=== PATIENT | male | born 1990 | race Caucasian/White ===

== ENCOUNTER 2021-11-11 13:13 | Emergency (ER) | payer OTHER ==
[2021-11-11 14:17] VITALS: TEMP 97.8
[2021-11-11] MEDS ORDERED: predniSONE 20 MG TAB PO STA (17:55)
--- NOTE | 2021-11-11 18:20 | ED ---
General Adult HPI - General Chief complaint: Skin/Abscess/Foreign Body Stated complaint: poison tara/oak exposure Time Seen by Provider: 11/11/21 17:26 Source: patient Mode of arrival: ambulatory Limitations: no limitations - History of Present Illness Initial comments: Patient is a 31-year-old male who presents to the emergency department with a chief complaint of rash. Patient states symptoms started 2 days ago. Patient states he was helping his parents build a fence about 5 days ago which involved yardwork and possible poison tara infection. Patient reports history of poison tara. The rash is over his right forearm, left cheek, and bilateral postauricular region. Denies pain but states it is very itchy. He has been taking Benadryl and using calamine cream with no relief. Patient states he was a little short of breath earlier which brought him into the emergency department but has since resolved. He denies throat swelling or irritation. Denies history of anaphylaxis. - Related Data Previous Rx's Medication Instructions Recorded Ibuprofen [Motrin] 800 mg PO Q8HR #30 tab 11/18/13 methylPREDNISolone Dose Pack 4 mg PO DIRECTED #21 package 11/18/13 [Medrol Dose Pack] predniSONE 10 mg PO DAILY #8 tab 11/11/21 predniSONE 30 mg PO DAILY #12 tab 11/11/21 predniSONE 50 mg PO DAILY #4 tablet 11/11/21 predniSONE [Deltasone] 20 mg PO DAILY #8 tab 11/11/21 predniSONE [Deltasone] 20 mg PO DAILY #9 tab 11/11/21 Allergies Allergy/AdvReac Type Severity Reaction Status Date / Time No Known Allergies Allergy Verified 11/11/21 14:16 Review of Systems ROS Statement: Those systems with pertinent positive or pertinent negative responses have been documented in the HPI. ROS Other: All systems not noted in ROS Statement are negative. Past Medical History Past Medical History: No Reported History History of Any Multi-Drug Resistant Organisms: None Reported Past Surgical History: Adenoidectomy, Tonsillectomy Past Psychological History: No Psychological Hx Reported Smoking Status: Never smoker Past Alcohol Use History: Occasional Past Drug Use History: None Reported General Exam Limitations: no limitations General appearance: alert, in no apparent distress Head exam: Present: atraumatic, normocephalic, normal inspection Eye exam: Present: normal appearance, PERRL, EOMI. Absent: scleral icterus, conjunctival injection, periorbital swelling ENT exam: Present: normal oropharynx Neck exam: Present: normal inspection (Rash). Absent: tenderness, meningismus, lymphadenopathy Respiratory exam: Present: normal lung sounds bilaterally. Absent: respiratory distress, wheezes, rales, rhonchi, stridor Cardiovascular Exam: Present: regular rate, normal rhythm, normal heart sounds. Absent: systolic murmur, diastolic murmur, rubs, gallop, clicks GI/Abdominal exam: Present: soft, normal bowel sounds. Absent: distended, tenderness, guarding, rebound, rigid Neurological exam: Present: alert, oriented X3, CN II-XII intact Psychiatric exam: Present: normal affect, normal mood Skin exam: Present: warm, dry, intact, normal color, rash (Vesicles on erythematous base over the) Course Vital Signs 11/11/21 11/11/21 14:11 18:35 Temperature 97.8 F Pulse Rate 64 62 Respiratory 18 16 Rate Blood Pressure 173/106 182/118 O2 Sat by Pulse 98 97 Oximetry Medical Decision Making - Medical Decision Making This is a 31-year-old male presents with poison tara concern. Thorough history and examination were performed. Patient is well-appearing and in no apparent distress. No dyspnea, throat swelling, or throat irritation. There is a vesicular rash on erythematous base over the right forearm, left cheek, and bilateral postauricular region. It does resemble poison tara. Because rash is extensive and patient experienced shortness of breath today I will treat this as systemic poison tara. He will be discharged with a prednisone taper. His first dose was given the emergency Department. Patient also instructed to follow-up with his primary care provider regarding his blood pressure. Patient states he used to be on lisinopril but stopped taking it. Return parameters discussed. Patient verbalizes understanding and is agreeable to this plan. Dr. Hirsch is my attending. Disposition Clinical Impression: Poison tara dermatitis, Hypertension Disposition: HOME SELF-CARE Instructions (If sedation given, give patient instructions): Poison Tara (ED), Cold Compress or Soak (ED) Additional Instructions: Please take medication as directed. You will take 60 mg daily for the next 3 days, then each 10 mg increment for the next 4 days. So after the 60 mg for 3 days you will be taking 50 mg for 4 days and so on until rash is cleared. Follow-up with primary care provider in one to 2 days regarding rash and high blood pressure. You may need to be put back on lisinopril. Return to the emergency department if you experience new, concerning, or worsening symptoms. Prescriptions: predniSONE [Deltasone] 20 mg PO DAILY #9 tab predniSONE [Deltasone] 20 mg PO DAILY #8 tab predniSONE 10 mg PO DAILY #8 tab predniSONE 30 mg PO DAILY #12 tab predniSONE 50 mg PO DAILY #4 tablet Is patient prescribed a controlled substance at d/c from ED?: No Referrals: Navarro Levi MD [Primary Care Provider] - 1-2 days Time of Disposition: 18:22
[2021-11-11 18:36] VITALS: BP 182/118; PULSE 62; RESP 16
== END 2021-11-11 18:38 | disposition home or self-care (01) ==
LOC: EC 13:13
DX: L23.7 Allergic contact dermatitis due to plants, except food (principal); I10 Essential (primary) hypertension
CPT/HCPCS: 99282; J7512

== ENCOUNTER 2022-06-03 15:29 | Emergency (ER) | payer OTHER ==
[2022-06-03 16:02] VITALS: BP 187/124; PULSE 65; RESP 16; TEMP 98
--- NOTE | 2022-06-03 16:50 | XR ---
EXAMINATION TYPE: XR chest 2V DATE OF EXAM: 06/03/2022 4:47 PM COMPARISON: Chest radiographs from 11/18/2013 TECHNIQUE: XR chest 2V Frontal and lateral views of the chest. CLINICAL INDICATION:Male, 32 years old with history of Chest Pain; FINDINGS: Lungs/Pleura: There is no evidence of pleural effusion, focal consolidation, or pneumothorax. Pulmonary vascularity: Unremarkable. Heart/mediastinum: Cardiomediastinal silhouette is unremarkable. Musculoskeletal: No acute osseous pathology. IMPRESSION: No acute cardiopulmonary disease/process.
[2022-06-03 17:36] LABS: Basophils # (A) 0.1 k/uL (0-0.2); Basophils % (A) 1 %; Eosinophils # (A) 0.2 k/uL (0-0.7); Eosinophils % (A) 2 %; HGB 16.6 gm/dL (13.0-17.5); Lymphocytes # (A) 1.3 k/uL (1.0-4.8); Lymphocytes % (A) 10 %; MCH 29.8 pg (25.0-35.0); MCV 82.9 fL (80.0-100.0); Mean Platelet Volume 8.5; Monocytes # (A) 0.3 k/uL (0-1.0); Monocytes % (A) 2 %; Neutrophils # (A) 10.8 k/uL (1.3-7.7); Neutrophils % (A) 84 %; Platelet Count 251 k/uL (150-450); RBC 5.55 m/uL (4.30-5.90); RDW 13.2 % (11.5-15.5); WBC 12.8 k/uL (3.8-10.6)
[2022-06-03 17:45] LABS: ALT 43 U/L (4-49); AST 40 U/L (17-59); African American GFR (CKD) >90 (>60 ml/min/1.73 sqM); Albumin 4.7 g/dL (3.5-5.0); Alkaline Phosphatase 92 U/L (38-126); Anion Gap 11 mmol/L; Blood Urea Nitrogen 16 mg/dL (9-20); Calcium 9.1 mg/dL (8.4-10.2); Carbon Dioxide 19 mmol/L (22-30); Chloride 110 mmol/L (98-107); Glucose 119 mg/dL (74-99); Magnesium 2.3 mg/dL (1.6-2.3); Non-African American GFR(CKD) >90 (>60 ml/min/1.73 sqM); Potassium 4.1 mmol/L (3.5-5.1); Sodium 140 mmol/L (137-145); Total Bilirubin 0.5 mg/dL (0.2-1.3); Total Protein 7.6 g/dL (6.3-8.2)
[2022-06-03 17:48] LABS: Partial Thromboplastin Time 22.3 sec (22.0-30.0); Prothrombin Time 10.3 sec (9.0-12.0)
== END 2022-06-03 20:34 | disposition left against medical advice (07) ==
LOC: EC 15:29
DX: Z53.21 Procedure and treatment not carried out due to patient leaving prior to being seen by health care provider (principal)
CPT/HCPCS: 36415; 71046; 80053; 83735; 84484; 85025; 85610; 85730; 87502; 87635; 93005; 99499

== ENCOUNTER 2023-05-02 11:39 | Emergency (ER) | payer OTHER ==
[2023-05-02 12:06] VITALS: TEMP 98.4
[2023-05-02] MEDS ORDERED: methylPREDNISolone SOD SUCCI 125 MG/2 ML VIAL IM ONE (12:17)
[2023-05-02] MEDS ORDERED: TRIAMCINOLONE ACET 0.5% CREAM 15 GM TUBE TOPICAL ONE (12:17)
--- NOTE | 2023-05-02 12:24 | ED ---
Skin/Abscess/FB HPI - General Chief complaint: Skin/Abscess/Foreign Body Stated complaint: Rash Time Seen by Provider: 05/02/23 11:50 Source: patient, RN notes reviewed Mode of arrival: ambulatory Limitations: no limitations - History of Present Illness Initial comments: This is a 32-year-old male who presents to the emergency department for concerns of poison tara. Reports a rash on his abdomen and bilateral forearms. He first noticed this 2 days ago. Describes this as being very itchy. Calamine lotion has not been very effective. He's been helping his parents move and he has been outside, and believes that this is how he may have acquired this. He did have poison tara last year as well and states that it looks and feels similar. States that last time steroids worked well for him. MD complaint: rash - Related Data Previous Rx's Medication Instructions Recorded Ibuprofen [Motrin] 800 mg PO Q8HR #30 tab 11/18/13 methylPREDNISolone Dose Pack 4 mg PO DIRECTED #21 package 11/18/13 [Medrol Dose Pack] predniSONE 10 mg PO DAILY #8 tab 11/11/21 predniSONE 30 mg PO DAILY #12 tab 11/11/21 predniSONE 50 mg PO DAILY #4 tablet 11/11/21 predniSONE [Deltasone] 20 mg PO DAILY #8 tab 11/11/21 predniSONE [Deltasone] 20 mg PO DAILY #9 tab 11/11/21 predniSONE 10 mg PO DIRECTED 20 Days #60 05/02/23 tab Allergies Allergy/AdvReac Type Severity Reaction Status Date / Time No Known Allergies Allergy Verified 05/02/23 11:44 Review of Systems ROS Statement: Those systems with pertinent positive or pertinent negative responses have been documented in the HPI. ROS Other: All systems not noted in ROS Statement are negative. Past Medical History Past Medical History: No Reported History History of Any Multi-Drug Resistant Organisms: None Reported Past Surgical History: Adenoidectomy, Tonsillectomy Past Psychological History: No Psychological Hx Reported Smoking Status: Never smoker Past Alcohol Use History: Occasional Past Drug Use History: None Reported General Exam Limitations: no limitations General appearance: alert, in no apparent distress Head exam: Present: atraumatic, normocephalic, normal inspection Respiratory exam: Present: normal lung sounds bilaterally. Absent: respiratory distress, wheezes, rales, rhonchi, stridor Cardiovascular Exam: Present: regular rate, normal rhythm, normal heart sounds. Absent: systolic murmur, diastolic murmur, rubs, gallop, clicks Neurological exam: Present: alert, oriented X3, CN II-XII intact Psychiatric exam: Present: normal affect, normal mood Skin exam: Present: other (Raised erythematous and scaling lesions to the left lower abdomen and bilateral forearms.) Course Vital Signs 05/02/23 05/02/23 11:42 13:07 Temperature 98.4 F Pulse Rate 63 64 Respiratory 18 16 Rate Blood Pressure 198/111 158/106 O2 Sat by Pulse 98 99 Oximetry Medical Decision Making - Medical Decision Making This is a 32-year-old male who presents to the emergency department for a rash. Was pt. sent in by a medical professional or institution? @ -No Did you speak to anyone other than the patient for history? @ -No Did you review nursing and triage notes? @ -Yes, and I agree, it is accurate with regards to the patient's symptoms. Were old charts reviewed? @ -No Differential Diagnosis? @ -Differential Rash: Roseola, measles, Lyme disease, erythema multiforme, cellulitis, toxic shock syndrome, Bartolo Adonay syndrome, Kawasaki disease, darius mountain spotted fever, contact dermatitis, allergic dermatitis, measles, mumps, rubella, varicella, meningococcal disease, drug reaction, coxsackievirus, This is not meant to be an all-inclusive list. EKG interpreted by me (3pts min.)? @ -Not obtained X-rays interpreted by me (1pt min.)? @ -Not obtained CT interpreted by me (1pt min.)? @ -Not obtained U/S interpreted by me (1pt. min.)? @ -Not obtained What testing was considered but not performed? (CT, X-rays, U/S, labs)? Why? @ -None What meds were considered but not given? Why? @ -None Did you discuss the management of the patient with other professionals? @ -No Did you reconcile home meds? @ -No Was smoking cessation discussed for >3mins.? @ -No Was critical care preformed (if so, how long)? @ -No Were there social determinants of health that impacted care today? How? (Homelessness, low income, unemployed, alcoholism, drug addiction, transportation, low edu. Level, literacy, decrease access to med. care, nursing home, rehab)? @ -No Was there de-escalation of care discussed even if they declined? (Discuss DNR or withdrawal of care, Hospice)? @ -No What co-morbidities impacted this encounter? (DM, HTN, Smoking, COPD, CAD, Cancer, CVA, Hep., AIDS, mental health diagnosis, sleep apnea, morbid obesity)? @ -None Was patient admitted / discharged? @ -Discharged. Physical examination consistent with a poison tara dermatitis. Rx for a steroid taper prescribed for further management of symptoms. He was also given a bottle of triamcinolone cream. Advised that he can use this as a spot treatment to help with itching, however he is instructed to avoid using this on the face if it were to spread there. He'll otherwise continue with supportive care and he was discharged home in stable condition. Undiagnosed new problem with uncertain prognosis? @ -None Drug Therapy requiring intensive monitoring for toxicity (Heparin, Nitro, Insulin, Cardizem)? @ -None Were any procedures done? @ -None Diagnosis/symptom? @ -Poison tara dermatitis Acute, or Chronic, or Acute on Chronic? @ -Acute Uncomplicated (without systemic symptoms) or Complicated (systemic symptoms)? @ -Uncomplicated Side effects of treatment? @ -None Exacerbation, Progression, or Severe Exacerbation] @ -Not applicable Poses a threat to life or bodily function? @ -No Return precautions reviewed in depth, the patient is instructed to return to the emergency department with any new, worsening, or concerning symptoms. Patient verbalized understanding. This case was discussed in detail with the attending ED physician, Dr. Marquez. Presentation, findings, and treatment plan discussed in detail as well. Disposition Clinical Impression: Poison tara dermatitis Disposition: HOME SELF-CARE Instructions (If sedation given, give patient instructions): Poison Tara (ED) Additional Instructions: Return to the emergency department with any new, worsening, or concerning symptoms. You can apply the cream provided 3-4 times daily as needed. Do not apply this to the face. Take the prednisone as prescribed based on the following dosage: Take 5 tablets (50mg) for 4 days, 4 tablets (40mg) for 4 days, 3 tablets (30mg) for 4 days, 2 tablets (20mg) for 4 days, and 1 tablet (10mg) for 4 days. Follow up with your primary care provider in 1-2 days. Prescriptions: predniSONE 10 mg PO DIRECTED 20 Days #60 tab Is patient prescribed a controlled substance at d/c from ED?: No Referrals: None,Stated [Primary Care Provider] - 1-2 days
[2023-05-02 13:18] VITALS: BP 158/106; PULSE 64; RESP 16
== END 2023-05-02 13:10 | disposition home or self-care (01) ==
LOC: EC 11:39
DX: L23.7 Allergic contact dermatitis due to plants, except food (principal)
CPT/HCPCS: 99282; 96372; J2930

== ENCOUNTER 2024-04-17 10:03 | Emergency (ER) | payer OTHER ==
[2024-04-17 10:17] VITALS: RESP 18
[2024-04-17] MEDS ORDERED: KETOROLAC 15 MG/ML 1 ML VIAL IVP STA (10:32)
--- NOTE | 2024-04-17 10:44 | ED ---
Back Pain HPI - General Chief Complaint: Back Pain/Injury Stated Complaint: Back pain Time Seen by Provider: 04/17/24 10:16 Source: patient, RN notes reviewed Limitations: no limitations - History of Present Illness Initial Comments: This is a 33-year-old male presenting with left upper back pain x 8 days. Patient endorses pain following back workout with no acute injury at the time of exercise. Patient endorses worsening left upper back pain with abduction of left arm and some associated numbness. Patient also mentions transient right facial numbness. Endorses minimal relief with previously prescribed cyclobenzaprine and ibuprofen, last taken earlier this morning. Patient denies weakness, radiculopathy, fever, chills, dyspnea, chest pain, abdominal pain, N/V/D, dizziness. MD Complaint: back pain Onset/Timin -: days(s) Place: other ([facility]) Consistency: constant Worsens With: movement (Abduction of left arm) Context: other (During back workout) Associated Symptoms: other (Transient right facial paresthesia) Treatments Prior to Arrival: cold therapy, NSAIDS, other medications (Cyclobenzaprine) - Related Data Previous Rx's Medication Instructions Recorded Ibuprofen [Motrin] 800 mg PO Q8HR #30 tab 11/18/13 methylPREDNISolone Dose Pack 4 mg PO DIRECTED #21 package 11/18/13 [Medrol Dose Pack] predniSONE 10 mg PO DAILY #8 tab 11/11/21 predniSONE 30 mg PO DAILY #12 tab 11/11/21 predniSONE 50 mg PO DAILY #4 tablet 11/11/21 predniSONE [Deltasone] 20 mg PO DAILY #8 tab 11/11/21 predniSONE [Deltasone] 20 mg PO DAILY #9 tab 11/11/21 predniSONE 10 mg PO DIRECTED 20 Days #60 05/02/23 tab Baclofen 10 mg PO Q8H PRN #10 tab 04/17/24 Ibuprofen [Motrin] 800 mg PO Q6HR #30 tab 04/17/24 Allergies Allergy/AdvReac Type Severity Reaction Status Date / Time No Known Allergies Allergy Verified 04/17/24 10:17 Review of Systems ROS Statement: Those systems with pertinent positive or pertinent negative responses have been documented in the HPI. ROS Other: All systems not noted in ROS Statement are negative. Past Medical History Past Medical History: Hypertension History of Any Multi-Drug Resistant Organisms: None Reported Past Surgical History: Adenoidectomy, Tonsillectomy Past Psychological History: Depression Smoking Status: Never smoker Past Alcohol Use History: Occasional Past Drug Use History: Marijuana General Exam Limitations: no limitations General appearance: alert, in no apparent distress Head exam: Present: atraumatic, normocephalic, normal inspection Eye exam: Present: normal appearance, PERRL, EOMI. Absent: scleral icterus, conjunctival injection, periorbital swelling ENT exam: Present: normal exam, mucous membranes moist Neck exam: Present: normal inspection. Absent: tenderness, meningismus, lymphadenopathy Respiratory exam: Present: normal lung sounds bilaterally. Absent: respiratory distress, wheezes, rales, rhonchi, stridor Cardiovascular Exam: Present: regular rate, normal rhythm, normal heart sounds. Absent: systolic murmur, diastolic murmur, rubs, gallop, clicks GI/Abdominal exam: Present: soft, normal bowel sounds. Absent: distended, tenderness, guarding, rebound, rigid Extremities exam: Present: normal inspection, full ROM, normal capillary refill. Absent: tenderness, pedal edema, joint swelling, calf tenderness Back exam: Present: normal inspection, full ROM (Full range of motion and strength 5 out of 5 in left arm abduction and flexion at shoulder. Distal neurovascular intact), tenderness (Left trapezius and rhomboid muscle tenderness.), muscle spasm (Muscle spasm of left trapezius and rhomboid muscles.) Neurological exam: Present: alert, oriented X3, CN II-XII intact Psychiatric exam: Present: normal affect, normal mood Skin exam: Present: warm, dry, intact, normal color. Absent: rash Course Vital Signs 04/17/24 10:14 Temperature 97.7 F Pulse Rate 54 L Respiratory 18 Rate Blood Pressure 138/80 O2 Sat by Pulse 99 Oximetry Medical Decision Making - Medical Decision Making Was pt. sent in by a medical professional or institution (, PA, [employer], urgent care, hospital, or long term...) When possible be specific @ -[No] Did you speak to anyone other than the patient for history (EMS, parent, family, police, friend...)? What history was obtained from this source @ -[No] Did you review nursing and triage notes (agree or disagree)? Why? @ -[I reviewed and agree with nursing and triage notes] Were old charts reviewed (outside hosp., previous admission, EMS record, old EKG, old radiological studies, urgent care reports/EKG's, long term records)? Report findings @ -[No old charts were reviewed] Differential Diagnosis (chest pain, altered mental status, abdominal pain women, abdominal pain men, vaginal bleeding, weakness, fever, dyspnea, syncope, headache, dizziness, GI bleed, back pain, seizure, CVA, palpatations, mental health, musculoskeletal)? @ -Differential Back Pain: Strain, zoster, cauda equina syndrome, epidural abscess, vertebral osteomyelitis, discitis, fracture, subluxation, disc herniation, DJD, spinal stenosis, dissection, AAA, pancreatitis, peptic ulcer disease, pyelonephritis, kidney stone, this is not meant to be an all-inclusive list. EKG interpreted by me (3pts min.). @ -Not done X-rays interpreted by me (1pt min.). @ -[None done] CT interpreted by me (1pt min.). @ -[None done] U/S interpreted by me (1pt. min.). @ -[None done] What testing was considered but not performed or refused? (CT, X-rays, U/S, labs)? Why? @ -[None] What meds were considered but not given or refused? Why? @ -[None] Did you discuss the management of the patient with other professionals (professionals i.e. , PA, [employer], lab, RT, psych nurse, social studies department chair, cut off machine unloader, teacher, credit compliance officer, major case detective)? Give summary @ -[No] Was smoking cessation discussed for >3mins.? @ -[No] Was critical care preformed (if so, how long)? @ -[No] Were there social determinants of health that impacted care today? How? (Homelessness, low income, unemployed, alcoholism, drug addiction, transportation, low edu. Level, literacy, decrease access to med. care, retirement, rehab)? @ -[No] Was there de-escalation of care discussed even if they declined (Discuss DNR or withdrawal of care, Hospice)? DNR status @ -[No] What co-morbidities impacted this encounter? (DM, HTN, Smoking, COPD, CAD, Cancer, CVA, ARF, Chemo, Hep., AIDS, mental health diagnosis, sleep apnea, morbid obesity)? @ -[None] Was patient admitted / discharged? Hospital course, mention meds given and route, prescriptions, significant lab abnormalities, going to OR and other pertinent info. @ -Discharge. Patient given Norflex and Toradol IM. Sent home with baclofen and Motrin 800 p.o. Advised warm compresses and gentle massage to area. Warm compress provided. Advised follow-up with orthopedics for ongoing pain. Undiagnosed new problem with uncertain prognosis? @ -[No] Drug Therapy requiring intensive monitoring for toxicity (Heparin, Nitro, Insulin, Cardizem)? @ -[No] Were any procedures done? @ -[No] Diagnosis/symptom? @ -Acute muscle strain/spasm Acute, or Chronic, or Acute on Chronic? @ -Acute Uncomplicated (without systemic symptoms) or Complicated (systemic symptoms)? @ -Uncomplicated Side effects of treatment? @ -[No] Exacerbation, Progression, or Severe Exacerbation? @ -[No] Poses a threat to life or bodily function? How? (Chest pain, [place], [place], pneumonia, PE, COPD, DKA, ARF, appy, cholecystitis, CVA, Diverticulitis, Homicidal, Suicidal, threat to staff... and all critical care pts) @ -[No] Disposition Clinical Impression: Mechanical back pain, Trapezius muscle strain Disposition: HOME SELF-CARE Condition: Good Instructions (If sedation given, give patient instructions): Muscle Spasm (ED) Prescriptions: Baclofen 10 mg PO Q8H PRN #10 tab PRN Reason: Spasms Ibuprofen [Motrin] 800 mg PO Q6HR #30 tab Is patient prescribed a controlled substance at d/c from ED?: No Referrals: [facility],Clinic [Primary Care Provider] - 1-2 days Time of Disposition: 10:44
[2024-04-17] MEDS: KETOROLAC 15 MG/ML 1 ML VIAL IM STA (10:59)
[2024-04-17] MEDS: ORPHENADRINE 30 MG/ML 2 ML VIAL IM STA (11:00)
[2024-04-17 11:28] VITALS: BP 130/77; PULSE 62; TEMP 98
== END 2024-04-17 11:29 | disposition home or self-care (01) ==
LOC: EC 10:03
CPT/HCPCS: 96372; 99283